=== PATIENT | male | born 1980 | race African-American/Black ===

== ENCOUNTER 2020-08-23 04:48 | Emergency (ER) | payer MEDICAID, SELFPAY ==
[~2020-08-23] VITALS: Ht 193 cm; Wt 108.9 kg
[2020-08-23 05:00] VITALS: BP_SYST 118
[2020-08-23 05:57] LABS: BASOPHILS % (AUTO) 0.5 % (0.0-2.0); EOSINOPHILS # (AUTO) 0.1 K/uL (0.0-0.4); HEMATOCRIT 43.3 % (36-54); HEMOGLOBIN 14.1 g/dL (14.0-18.0); LYMPHOCYTES # (AUTO) 1.9 K/uL (1.0-5.5); LYMPHOCYTES % (AUTO) 36.6 % (20.5-51.5); MEAN CORPUSCULAR HEMOGLOBIN 30 pg (27-31); MEAN CORPUSCULAR HGB CONC 33 % (32-36); MEAN CORPUSCULAR VOLUME 92 fL (79.0-98.0); MONOCYTES # (AUTO) 0.4 K/uL (0.0-1.0); MONOCYTES % (AUTO) 6.9 % (1.7-9.3); NEUTROPHILS # (AUTO) 2.8 K/uL (1.8-7.7); PLATELET COUNT (AUTO) 214 K/uL (130-430); RED CELL DISTRIBUTION WIDTH 14.2 % (9.0-15.0); WHITE BLOOD COUNT (AUTO) 5.2 K/uL (4.8-10.8)
[2020-08-23 06:06] LABS: CALCIUM 9.1 mg/dL (8.4-11.0); CREATININE 1.42 mg/dL (0.55-1.30); POTASSIUM 3.9 mmol/L (3.5-5.1)
[2020-08-23 06:12] LABS: ALBUMIN 3.4 g/dL (3.4-4.8); TOTAL BILIRUBIN 0.2 mg/dL (0.0-1.0)
[2020-08-23 06:53] VITALS: BP_SYST 116
== END 2020-08-23 08:48 | disposition left against medical advice (07) ==
LOC: SED 04:48
DX: I24.9 Acute ischemic heart disease, unspecified (principal)
CPT/HCPCS: 36415; 70450; 71045; 76376; 80053; 82550; 82962; 84484; 85025; 85379; 93005; 99285; G0482

== ENCOUNTER 2022-06-29 00:46 | Emergency (ER) | payer MEDICAID ==
[~2022-06-29] VITALS: Ht 188 cm; Wt 117.9 kg
[2022-06-29 00:48] VITALS: BP_SYST 138
--- NOTE | 2022-06-29 00:54 | NUR ---
PT FROM HOME WITH C/O OF LEFT UPPER MOUTH PAIN, HEADACHE, AND LEFT EAR PAIN. PT REPORTS HAVING A CURRENT TOOTH ACHE. PT NONFEBRILE. VSS. MSE MADE AWARE FOR NEED OF MSE.
--- NOTE | 2022-06-29 01:14 | NUR ---
WITH PATIENT FOR MSE.
[2022-06-29] MEDS ORDERED: BUPIVACAINE /PF 0.25% 30 ML VIAL INJ ONE (01:15)
--- NOTE | 2022-06-29 01:24 | NUR ---
MD AT BEDSIDE WITH PATIENT FOR ADMINISTRATION OF MEDICATION.
[2022-06-29] MEDS ORDERED: HYDR-3917 PO (01:46)
[2022-06-29 01:56] VITALS: BP_SYST 138
--- NOTE | 2022-06-29 01:56 | NUR ---
Patient given written and verbal discharge instructions and verbalizes understanding. ER DR. HAN discussed with patient the results and treatment provided. Patient in stable condition. ID arm band removed. Rx of NORCO given. Patient educated on pain management and to follow up with PMD. Pain Scale 0. Opportunity for questions provided and answered. Medication side effect fact sheet provided.
== END 2022-06-29 01:56 | disposition home or self-care (01) ==
LOC: SED 00:46
DX: K08.89 Other specified disorders of teeth and supporting structures (principal); F17.200 Nicotine dependence, unspecified, uncomplicated; Z79.899 Other long term (current) drug therapy
CPT/HCPCS: 99284; 64400; J3490